=== PATIENT | male | born 1945 | race Caucasian/White ===

== ENCOUNTER 2024-02-20 05:54 | Day surgery (SDC) | payer MEDICARE, OTHER ==
[2024-02-13] MEDS: DOCUMENT DATE & TIME OF BETA-BLOCKER PO ONE (05:30)
[2024-02-15 13:08] LABS: BASOPHILS % (AUTO) 0.3 % (0-1); EOSINOPHILS # (AUTO) 0.1 X10'3 (0-0.9); EOSINOPHILS % (AUTO) 2.8 % (0-6); LYMPHOCYTES # (AUTO) 0.3 X10'3 (1.1-4.8); LYMPHOCYTES % (AUTO) 7.4 % (21-51); MEAN CORPUSCULAR HEMOGLOBIN 31.5 PG (27.0-31.0); MEAN CORPUSCULAR HGB CONC 34.8 g/dL (33.0-36.5); MEAN CORPUSCULAR VOLUME 90.4 FL (78-98); MEAN PLATELET VOLUME 8.6 FL (7.4-10.4); MONOCYTES # (AUTO) 0.4 X10'3 (0-0.9); MONOCYTES % (AUTO) 9.9 % (2-12); NEUTROPHILS # (AUTO) 3.6 X10'3 (1.8-7.7); NEUTROPHILS % (AUTO) 79.6 % (42-75); PRE OP HEMATOCRIT 34.8 % (42.0-52.0); PRE OP HEMOGLOBIN 12.1 g/dL (14.0-17.9); PRE OP PLATELET COUNT 157 X10'3 (140-440); PRE OP WHITE BLOOD COUNT 4.5 10'3 (4.8-10.8); RED BLOOD COUNT 3.85 X10'6 (4.70-6.10); RED CELL DISTRIBUTION WIDTH 14.7 % (11.5-14.5)
[2024-02-15 13:14] LABS: ALBUMIN 3.3 G/DL (3.4-5.0); ALBUMIN/GLOBULIN RATIO 0.9 (1.1-1.5); ALKALINE PHOSPHATASE 66 IU/L (46-116); BLOOD UREA NITROGEN 26 MG/DL (7-18); BUN/CREATININE RATIO 23.9 (10.0-20.0); CALCIUM 8.8 MG/DL (8.5-10.1); CHLORIDE 107 MMOL/L (99-107); CREATININE 1.09 MG/DL (0.60-1.10); PRE OP ALT 25 U/L (30-65); PRE OP ANION GAP 5 (8-16); PRE OP AST 20 U/L (10-37); PRE OP BILIRUB, TOTAL 0.6 MG/DL (0.0-1.0); PRE OP GLUCOSE 101 MG/DL (70-104); PRE OP POTASSIUM 3.9 MMOL/L (3.4-5.1); PRE OP SODIUM 139 MMOL/L (135-145); TOTAL CARBON DIOXIDE 27.5 MMOL/L (24-32); eGFR 65 ML/MIN
[~2024-02-20] VITALS: Ht 182.9 cm; Wt 95.3 kg
[2024-02-20] MEDS: cefazolin 2gm/D5W 100mL 100 ML IV ONE (05:30)
[~2024-02-20 05:54] MED LIST: APIX5TAB3 PO; CARV6.253 PO; DOCUMENT DATE & TIME OF BETA-BLOCKER PO ONE; FINA5TAB11 PO; FLO0.4C PO; LEVO75CA5 PO; OLME40TA18 PO; OXYB-58 PO; cefazolin 2gm/D5W 100mL 100 ML IV ONE; famotidine 20mg tablet PO ONE; ringers solution, lacted 1,000 ML IV SCH
[2024-02-20] MEDS: famotidine 20mg tablet PO ONE (06:33)
[2024-02-20] MEDS ORDERED: midazolam 1 mg/ML 2ml injection ONE (08:18)
[2024-02-20] MEDS ORDERED: fentaNYL/PF 50MCG/1 ML 2ML syringe ONE (08:18)
[2024-02-20] MEDS ORDERED: proCHLORperazine 10 MG/2 ml inj IV PRN (08:20)
[2024-02-20] MEDS ORDERED: ringers solution, lacted 1,000 ML IV SCH (08:20)
[2024-02-20] MEDS ORDERED: meperidine/PF 25mg/ml syringe IV PRN ×3 (08:20)
[2024-02-20] MEDS ORDERED: ondansetron/PF 4mg/2ml inj IV PRN (08:20)
[2024-02-20] MEDS ORDERED: morphine 2 MG/ML inj. syringe IV PRN (08:20)
[2024-02-20] MEDS ORDERED: morphine 4 MG/ML inj SYRINge IV PRN (08:20)
[2024-02-20] MEDS ORDERED: propofol inj 20 ML IV ONE (08:47)
[2024-02-20 09:02] VITALS: BP 133/60; PULSE 44; PULSE 45; RESP 13; RESP 16; O2SAT 97
[2024-02-20 09:12] VITALS: BP 137/80; PULSE 48; RESP 13; O2SAT 98
[2024-02-20 09:22] VITALS: BP 136/102; PULSE 45; RESP 12; O2SAT 99
[2024-02-20 09:32] VITALS: BP 146/74; PULSE 46; RESP 19; O2SAT 98
[2024-02-20 09:58] VITALS: BP 132/81; PULSE 53; RESP 14; O2SAT 95
[2024-02-20] MEDS: BUPIVAcaine/PF 2.5mg/ml (0.25%) 10ml vial ONE (10:15)
[2024-02-20] MEDS: LIDOcaine 2% (20mg/ml) 5ml vial ONE (10:15)
[2024-02-20 10:56] VITALS: BP 157/88; PULSE 51; RESP 16; TEMP 98; O2SAT 98
== END 2024-02-20 09:52 | disposition home or self-care (01) ==
LOC: PAS 05:54
PROVIDERS: ATTEND Orthopaedic Surgery Hand Surgery
DX: G56.03 Carpal tunnel syndrome, bilateral upper limbs (principal); I10 Essential (primary) hypertension; E03.9 Hypothyroidism, unspecified; I48.91 Unspecified atrial fibrillation; I48.92 Unspecified atrial flutter; Z85.46 Personal history of malignant neoplasm of prostate; Z79.890 Hormone replacement therapy; Z79.899 Other long term (current) drug therapy
CPT/HCPCS: 36415; 64721; 80053; 82948; 85025; A4215; A6449; J0690; J2001; J2250; J2704; J3010; J3490; J7030; J7120; Z7506; Z7512; Z7610